=== PATIENT | female | born 1935 | race Caucasian/White ===

== ENCOUNTER 2020-02-02 20:38 | Emergency (ER) | payer MEDICARE, SELFPAY ==
--- NOTE | ~2020-02-02 | XR_ITS ---
XR tibia fibula RT 2V 02/02/2020 21:18 INDICATION: Right lower leg pain and edema PROCEDURE: 2 views right tibia/fibula COMPARISON: No prior studies for comparison. FINDINGS: Fracture, dislocation or subluxation is not identified. There is moderate diffuse subcutane ous edema. No foreign bodies are identified. IMPRESSION: 1: NO ACUTE BONE OR JOINT ABNORMALITY IDENTIFIED. Reviewed, dictated and finalized at location A.
--- NOTE | 2020-02-02 20:53 | ED.EXTPRO ---
HPI - Extremity Problem General Chief complaint: Extremity Problem,Nontraumatic Stated complaint: swelling in R leg Time Seen by Provider: 02/02/20 20:55 Source: patient and family Mode of arrival: wheelchair Limitations: no limitations History of Present Illness HPI Narrative: 84-year-old woman with a history of embolic CVA, and chronic renal insufficiency comes in today complaining of pain and swelling in her right leg that started 1 month ago. She states that she has a spot in the front of her leg that is weeping clear fluid. She denies fever, nausea, vomiting, weakness, chills, night sweats and numbness. She denies prior similar symptoms. MD Complaint: extremity pain and extremity swelling Related Data Home Medications Medication Instructions Recorded Confirmed acetaminophen [Tylenol Extra 1,000 mg PO Q4H PRN 05/09/19 02/02/20 Strength] anastrozole 1 mg PO DAILY 05/09/19 02/02/20 apixaban [Eliquis] 2.5 mg PO BID 05/09/19 02/02/20 carvedilol 12.5 mg PO BID 05/09/19 02/02/20 cyanocobalamin (vitamin B-12) 1,000 mcg PO DAILY 05/09/19 02/02/20 ferrous sulfate 325 mg PO TID 05/09/19 02/02/20 hydrochlorothiazide 12.5 mg PO DAILY 05/09/19 02/02/20 losartan 100 mg PO DAILY 05/09/19 02/02/20 magnesium 1,000 mg PO DAILY 05/09/19 02/02/20 pantoprazole 40 mg PO BID 05/09/19 02/02/20 atorvastatin 10 mg PO DAILY 02/02/20 02/02/20 oxybutynin chloride 5 mg PO DAILY 02/02/20 02/02/20 Allergies Allergy/AdvReac Type Severity Reaction Status Date / Time amoxicillin Allergy Unknown Verified 11/12/17 09:45 simvastatin Allergy Unknown Verified 09/11/15 13:05 Sulfa (Sulfonamide Allergy Unknown Verified 09/12/15 10:09 Antibiotics) Review of Systems Constitutional: Constitutional: Denies chills, Denies fever(s) and Denies weakness Eyes: Eyes: Denies change in vision and Denies photophobia Respiratory: Respiratory: Denies cough, Denies dyspnea and Denies wheezing Gastrointestinal: Gastrointestinal: Denies abdominal pain, Denies nausea and Denies vomiting Genitourinary: Genitourinary: Denies nocturia and Denies dysuria Musculoskeletal: Musculoskeletal: Reports as per HPI (leg swelling, wound), Denies arthralgias and Denies joint swelling Integumentary/Breasts: Skin/Breast: Denies pruritus, Denies erythema and Denies rash Neurologic: Denies vertigo, Denies dizziness and Denies syncope Hematologic/Lymphatic: Hematologic/Lymphatic: Reports easy bleeding and Denies easy bruising Allergic/Immunologic: Allergic/Immunologic: Denies lip swelling and Denies throat swelling PMFSH Past Medical History Medical History (Updated 02/02/20 @ 22:43 by Javi Mcarthur MD) Chronic renal insufficiency Colon cancer CVA (cerebral vascular accident) Dyslipidemia Endometrial cancer GERD (gastroesophageal reflux disease) Neuropathy Small bowel obstruction Surgical History Surgical History (Updated 05/09/19 @ 14:42 by Javi Mcarthur MD) H/O colectomy History of appendectomy History of hysterectomy for cancer History of laparotomy Hx of cataract surgery Family History Family History (Updated 11/18/17 @ 11:00 by DOCTOR UNKNOWN) Other Cerebrovascular accident Family history of malignant neoplasm Hypertension Social History Social History (Updated 05/09/19 @ 14:42 by Javi Mcarthur MD) Smoking status: Never smoker Alcohol intake: never Substance use: never Exam Const: General: healthy appearing, no acute distress and alert Orientation/consciousness: patient oriented x3 Limitations: no limitations Eyes: Conjunctivae: conjunctivae normal Pupils: Equal, round and reactive pupils present EOM: EOMs intact bilaterally Resp: Effort & Inspection: normal respiratory effort and not labored Auscultation: clear to auscultation bilaterally, no rales, no rhonchi and no wheezes Cardio: Rate: regular rate Rhythm: regular rhythm Heart sounds: no murmurs Skin: General skin exam: normal color, no jaundi
[2020-02-02 21:10] VITALS: BP 146/76; PULSE 107; RESP 20; TEMP 36.7; O2SAT 97
[2020-02-02 21:26] LABS: Basophils Absolute Auto 0.05 K/mm3 (0.00-0.10); Basophils Percent Auto 0.7 % (0.0-1.0); Eosinophils Absolute Auto 0.09 K/mm3 (0.02-0.50); Eosinophils Percent Auto 1.3 % (1.0-6.0); Hematocrit 32.6 % (35.0-42.0); Hemoglobin 10.2 g/dL (11.7-13.8); Immature Granulocyte Absolute 0.03 K/mm3 (0.00-0.00); Immature Granulocyte Percent A 0.4 % (0.0-0.0); Lymphocytes Absolute Auto 0.93 K/mm3 (1.10-4.50); Mean Corpuscular HGB Conc 31.3 g/dL (32.0-36.0); Mean Corpuscular Hemoglobin 28.5 pg (27.0-31.0); Mean Corpuscular Volume 91.1 fL (78.0-102.0); Mean Platelet Volume 10.3 fl (9.2-11.8); Monocytes Absolute Auto 0.86 K/mm3 (0.10-0.90); Neutrophils Absolute Auto 5.2 K/mm3 (1.7-7.2); Neutrophils Percent Auto 72.6 % (50.0-70.0); Platelet Count Result 327 K/mm3 (150-420); Red Blood Count 3.58 M/mm3 (4.20-5.40); Red Cell Distribution Width 14.9 % (11.6-14.4); White Blood Count 7.2 K/mm3 (4.8-10.8)
[2020-02-02 21:41] LABS: Alanine Aminotransferase 13 U/L (14-59); Albumin Level 3.2 g/dL (3.4-5.0); Alkaline Phosphatase 82 U/L (46-116); Anion Gap 7 mmol/L (8-16); Aspartate Amino Transferase 13 U/L (15-37); Bilirubin,Total 0.5 mg/dL (0.00-1.00); Blood Urea Nitrogen 15 mg/dL (7-18); CRP 0.7 mg/dL (0.0-0.9); Calcium 8.9 mg/dL (8.5-10.1); Carbon Dioxide 28 mmol/L (21-32); Chloride 108 mmol/L (98-108); Estimated Glomerular Filt Rate 30; Glucose 95 mg/dL (70-99); Osmolality Calculated 296 mOsm/kg (285-295); Potassium 3.3 mmol/L (3.5-5.1); Sodium 143 mmol/L (136-145); Total Protein 6.8 g/dL (6.4-8.2)
[2020-02-02 21:46] LABS: Lactic Acid Reflex 0.8 mmol/L (0.4-2.0)
[2020-02-02 21:50] LABS: INR 1.3; Partial Thromboplastin Time 32.1 SEC (22.3-31.6)
[2020-02-02 22:26] LABS: Add Urine Microscopic? YES; Appearance Urine Sl Cloudy (Clear); Bilirubin Urine Negative (Negative); Blood Urine 1+ (Negative); Color Urine Yellow (Yellow); Glucose Urine UA Negative (Negative); Ketones Urine Trace (Negative); Leukocyte Esterase Ur 2+ LEU/UL (Negative); Nitrate Urine Negative (Negative); Protein Urine Trace (Negative); Specific Grav Ur 1.025 (1.010-1.020); Urobilinogen Urine 0.2 mg/dL (0.2-1.0); pH Urine 5.5 (5.0-8.0)
[2020-02-02] MEDS: CIPROFLOXACIN 500 MG TAB PO (22:30)
[2020-02-02 22:35] LABS: Bacteria Urine 1+ /hpf; Squamous Epithelial Cell Urine None seen /hpf (Few); WBC Urine 21-30 /hpf (0-3)
[2020-02-02 23:00] VITALS: BP 110/80; PULSE 68; RESP 16; TEMP 36.6; O2SAT 98
== END 2020-02-02 23:01 | disposition home or self-care (01) ==
PROVIDERS: Emergency Provider Emergency Medicine; PCP Internal Medicine
DX: I87.8 Other specified disorders of veins (principal); E87.6 Hypokalemia; N39.0 Urinary tract infection, site not specified; N18.3 Chronic kidney disease, stage 3 (moderate)
CPT/HCPCS: 36415; 73590; 80053; 81001; 83605; 85025; 85610; 85730; 86140; 87040; 87086; 87088; 99283; A9270

== ENCOUNTER 2020-02-03 14:34 | Outpatient (CLI) | payer MEDICARE, SELFPAY ==
--- NOTE | ~2020-02-03 | US_ITS ---
EXAMINATION:US venous doppler LE RT INDICATION:Right leg swelling TECHNIQUE: Multiple grayscale, color flow and Doppler images of the right lower extremity deep venous systems were obtained and reviewed. COMPARISON:No prior studies for comparison. FINDINGS: The common femoral, superficial femoral and popliteal veins demonstrate normal respiratory variation, augmentation and compressibility. Color flow is also seen within the posterior tibial, pe roneal, greater saphenous and profunda veins. There is right inguinal lymphadenopathy, largest measuring 2.8 x 2.7 x 1.9 cm, likely reactive. IMPRESSION: 1: No lower extremity deep venous thrombosis. 2: Right inguinal lymphadenopathy, likely reactive. Reviewed, dictated and finalized at location A.
== END 2020-02-03 14:35 | disposition home or self-care (01) ==
PROVIDERS: PCP Internal Medicine; Visit Provider Internal Medicine
DX: M79.89 Other specified soft tissue disorders (principal); R59.0 Localized enlarged lymph nodes
CPT/HCPCS: 93971

== ENCOUNTER 2020-02-09 08:12 | Outpatient (CLI) | payer MEDICARE, SELFPAY ==
--- NOTE | ~2020-02-09 | CT_ITS ---
EXAMINATION: CT abdomen pelvis wo con DATE: 02/09/2020 08:51 INDICATION: Metastatic endometrial cancer TECHNIQUE: Computed tomography (CT) of the abdomen and pelvis was performed without intravenous contr ast. The dose-length product (DLP) was 252.92 mGy-cm. Automated exposure control and iterative recons truction technique were employed. COMPARISON: 05/09/2019 FINDINGS: Nodules of the visualized lung bases measure up to 10 mm in the left lower lobe. A 5 mm nod ule of the right lower lobe on image 15 previously measured 3 mm. A 4 mm nodule of the lingula previo usly measured 3 mm. The heart size is normal. There is no pleural or pericardial effusion. Within the limitations of noncontrast examination, the liver, spleen, pancreas, and adrenal glands are normal. Stones are present in the nondistended gallbladder. There is cortical thinning of the kidneys. There is calcified atherosclerosis of the aorta and many of the other arteries. Bilateral inguinal lymphade nopathy has developed. The largest lymph node on the right measures 2.5 x 1.8 cm and the largest on t he left measures 2.3 x 1.1 cm. There is questionable wall thickening of the vagina. A fat-containing infraumbilical hernia is noted. There is moderate lumbar spondylosis. Colonic diverticulosis is prese nt without evidence of diverticulitis. There is no free intraperitoneal gas or evidence of bowel obst ruction. A bowel surgical anastomosis is noted in the pelvis. An enchondroma is noted in the right pr oximal femur. IMPRESSION: 1. Interval development of bilateral inguinal lymphadenopathy, consistent with metastatic disease. 2. Large nodules of the visualized lung bases, also concerning for metastatic disease. 3. Wall thickening of the vagina of unclear significance. 4. Cholelithiasis without evidence of cholecystitis. Reviewed, dictated and finalized at location A. IMPRESSION: 1. Interval development of bilateral inguinal lymphadenopathy, consistent with metastatic disease. 2. Large nodules of the visualized lung bases, also concerning for metastatic d isease. 3. Wall thickening of the vagina of unclear significance. 4. Cholelithiasis without evidence of cholecystitis.
== END 2020-02-09 08:13 | disposition home or self-care (01) ==
LOC: CHSIMG 08:15
PROVIDERS: PCP Internal Medicine; Visit Provider Internal Medicine
DX: C54.1 Malignant neoplasm of endometrium (principal)
CPT/HCPCS: 74176

== ENCOUNTER 2020-02-17 20:48 | Emergency (ER) | payer MEDICARE, SELFPAY ==
[2020-02-17 21:00] VITALS: BP 155/82; PULSE 110; RESP 16; TEMP 36.6; O2SAT 98
--- NOTE | 2020-02-17 21:17 | ED.EXTPRO ---
HPI - Extremity Problem General Chief complaint: Extremity Problem,Nontraumatic Stated complaint: swelling in the right leg Source: patient and family Mode of arrival: ambulatory Limitations: no limitations History of Present Illness HPI Narrative: 84-year-old female presents with left shoulder pain, denies any injuries she is here with her daughter and her daughter does not report any injuries. Has good range of motion there is no swelling, there is no point tenderness has a good strong brisk radial pulse on the on the left there is no bruising has no shortness of breath no fever chills no radiculopathy no numbness or tingling going down her left neck or shoulder into her arm. Complaint: extremity pain Onset (ago): day(s) Pain Consistency: intermittent Location: left Severity scale (1-10): 1 Quality: dull Radiation: none Relieving factors: nothing Exacerbating factors: nothing Associated symptoms: denies other symptoms Related Data Home Medications Medication Instructions Recorded Confirmed acetaminophen [Tylenol Extra 1,000 mg PO Q4H PRN 05/09/19 02/17/20 Strength] anastrozole 1 mg PO DAILY 05/09/19 02/17/20 apixaban [Eliquis] 2.5 mg PO BID 05/09/19 02/17/20 carvedilol 12.5 mg PO BID 05/09/19 02/17/20 cyanocobalamin (vitamin B-12) 1,000 mcg PO DAILY 05/09/19 02/17/20 ferrous sulfate 325 mg PO TID 05/09/19 02/17/20 hydrochlorothiazide 12.5 mg PO DAILY 05/09/19 02/17/20 losartan 100 mg PO DAILY 05/09/19 02/17/20 magnesium 1,000 mg PO DAILY 05/09/19 02/17/20 pantoprazole 40 mg PO BID 05/09/19 02/17/20 atorvastatin 10 mg PO DAILY 02/02/20 02/17/20 oxybutynin chloride 5 mg PO DAILY 02/02/20 02/17/20 Allergies Allergy/AdvReac Type Severity Reaction Status Date / Time amoxicillin Allergy Unknown Verified 11/12/17 09:45 simvastatin Allergy Unknown Verified 09/11/15 13:05 Sulfa (Sulfonamide Allergy Unknown Verified 09/12/15 10:09 Antibiotics) Review of Systems Review of Systems: All systems reviewed & are unremarkable except as noted in HPI and below PMFSH Past Medical History Medical History Chronic renal insufficiency Colon cancer CVA (cerebral vascular accident) Dyslipidemia Endometrial cancer GERD (gastroesophageal reflux disease) Neuropathy Small bowel obstruction Surgical History Surgical History H/O colectomy History of appendectomy History of hysterectomy for cancer History of laparotomy Hx of cataract surgery Family History Family History Other Cerebrovascular accident Family history of malignant neoplasm Hypertension Social History Social History Smoking status: Never smoker Alcohol intake: never Substance use: never Exam Const: General: no acute distress and alert Orientation/consciousness: patient oriented x3 HENMT: Head: normal to inspection Eyes: Conjunctivae: conjunctivae normal Pupils: Equal, round and reactive pupils present EOM: EOMs intact bilaterally Neck: Neck: normal visual inspection Chest: Chest palpation & inspection: normal inspection of the chest Resp: Effort & Inspection: normal respiratory effort Auscultation: clear to auscultation bilaterally Cardio: Rate: regular rate Rhythm: regular rhythm GI: GI Palp: Yes Soft to palpation : General: Yes no CVA tenderness Back/Spine/Pelvis: Back: no CVA tenderness Skin: General skin exam: normal color Rashes: no rashes Neuro: General: patient oriented x3 and moves all extremities Extrem: General: normal to inspection Psych: Appearance: grossly normal and well kempt Mental Status: mental status grossly normal Affect: normal affect Attitude: cooperative Course Course Emergency Course: Patient did take Tylenol earlier this morning but has not had any sense, n
[2020-02-17 21:29] VITALS: RESP 20; O2SAT 100
== END 2020-02-17 21:29 | disposition home or self-care (01) ==
PROVIDERS: Emergency Provider Emergency Medicine; PCP Internal Medicine
DX: S46.912A Strain of unspecified muscle, fascia and tendon at shoulder and upper arm level, left arm, initial encounter (principal); Z85.038 Personal history of other malignant neoplasm of large intestine; Z86.73 Personal history of transient ischemic attack (TIA), and cerebral infarction without residual deficits; K21.9 Gastro-esophageal reflux disease without esophagitis
CPT/HCPCS: 99281; 99282

== ENCOUNTER 2020-04-25 10:16 | Outpatient (CLI) | payer MEDICARE, SELFPAY | END 2020-04-25 10:17 | disposition home or self-care (01) | LOC: CHSLAB 10:18 | PROVIDERS: PCP Internal Medicine; Visit Provider Internal Medicine | DX: R19.7 Diarrhea, unspecified (principal) | CPT/HCPCS: 87324 ==

== ENCOUNTER 2020-05-03 10:56 | Outpatient (RCR) | payer MEDICARE, SELFPAY ==
[2020-03-22 16:20] LABS: Basophils Absolute Auto 0.02 K/mm3 (0.00-0.10); Basophils Percent Auto 0.3 % (0.0-1.0); Eosinophils Absolute Auto 0.05 K/mm3 (0.02-0.50); Eosinophils Percent Auto 0.7 % (1.0-6.0); Hematocrit 37.5 % (35.0-42.0); Hemoglobin 11.7 g/dL (11.7-13.8); Immature Granulocyte Absolute 0.03 K/mm3 (0.00-0.00); Immature Granulocyte Percent A 0.4 % (0.0-0.0); Lymphocytes Absolute Auto 0.76 K/mm3 (1.10-4.50); Lymphocytes Percent Auto 10.6 % (18.0-42.0); Mean Corpuscular HGB Conc 31.2 g/dL (32.0-36.0); Mean Corpuscular Hemoglobin 28.6 pg (27.0-31.0); Mean Corpuscular Volume 91.7 fL (78.0-102.0); Mean Platelet Volume 11.1 fl (9.2-11.8); Monocytes Absolute Auto 0.14 K/mm3 (0.10-0.90); Neutrophils Absolute Auto 6.2 K/mm3 (1.7-7.2); Platelet Count Result 269 K/mm3 (150-420); Red Blood Count 4.09 M/mm3 (4.20-5.40); Red Cell Distribution Width 14.5 % (11.6-14.4); White Blood Count 7.2 K/mm3 (4.8-10.8)
[2020-03-29 20:26] LABS: Hematocrit 37.2 % (35.0-42.0); Hemoglobin 11.3 g/dL (11.7-13.8); Mean Corpuscular HGB Conc 30.4 g/dL (32.0-36.0); Mean Corpuscular Hemoglobin 28.5 pg (27.0-31.0); Mean Corpuscular Volume 93.7 fL (78.0-102.0); Mean Platelet Volume 11.4 fl (9.2-11.8); Platelet Count Result 229 K/mm3 (150-420); Red Blood Count 3.97 M/mm3 (4.20-5.40); Red Cell Distribution Width 14.1 % (11.6-14.4); White Blood Count 2.3 K/mm3 (4.8-10.8)
[2020-03-29 20:41] LABS: Alanine Aminotransferase 16 U/L (14-59); Albumin Level 3.3 g/dL (3.4-5.0); Alkaline Phosphatase 78 U/L (46-116); Anion Gap 7 mmol/L (8-16); Aspartate Amino Transferase 11 U/L (15-37); Blood Urea Nitrogen 16 mg/dL (7-18); Calcium 8.7 mg/dL (8.5-10.1); Carbon Dioxide 28 mmol/L (21-32); Chloride 104 mmol/L (98-108); Estimated Glomerular Filt Rate 43; Glucose 117 mg/dL (70-99); Magnesium 1.3 mg/dL (1.8-2.4); Osmolality Calculated 290 mOsm/kg (285-295); Potassium 3.9 mmol/L (3.5-5.1); Sodium 139 mmol/L (136-145); Total Protein 6.1 g/dL (6.4-8.2)
[2020-03-29 21:16] LABS: Band Neutrophils Percent 0 % (0-6); Lymphocytes Absolute Manual 0.34 K/mm3 (1.1-4.5); Lymphocytes Percent Manual 15 % (18-44); Monocytes Absolute Manual 0.04 K/mm3 (0.1-0.90); Monocytes Percent Manual 2 % (3-9); Neutrophils Percent Manual 83 % (46-73); Total Cells Counted 100
[2020-03-29 21:17] LABS: Platelet Estimate Adequate (Adequate)
[2020-04-05 09:29] LABS: Hematocrit 34.9 % (35.0-42.0); Hemoglobin 11.2 g/dL (11.7-13.8); Mean Corpuscular HGB Conc 32.1 g/dL (32.0-36.0); Mean Corpuscular Hemoglobin 28.4 pg (27.0-31.0); Mean Corpuscular Volume 88.6 fL (78.0-102.0); Mean Platelet Volume 10.3 fl (9.2-11.8); Platelet Count Result 269 K/mm3 (150-420); Red Blood Count 3.94 M/mm3 (4.20-5.40); Red Cell Distribution Width 13.8 % (11.6-14.4)
[2020-04-05 10:02] LABS: Alanine Aminotransferase 16 U/L (14-59); Albumin Level 3.1 g/dL (3.4-5.0); Alkaline Phosphatase 80 U/L (46-116); Anion Gap 9 mmol/L (8-16); Aspartate Amino Transferase 11 U/L (15-37); Bilirubin,Total 1.4 mg/dL (0.00-1.00); Blood Urea Nitrogen 18 mg/dL (7-18); Calcium 8.4 mg/dL (8.5-10.1); Carbon Dioxide 31 mmol/L (21-32); Chloride 102 mmol/L (98-108); Estimated Glomerular Filt Rate 54; Glucose 95 mg/dL (70-99); Osmolality Calculated 295 mOsm/kg (285-295); Potassium 3.7 mmol/L (3.5-5.1); Sodium 142 mmol/L (136-145)
[2020-04-05 10:16] LABS: Band Neutrophils Percent 1 % (0-6); Basophils Absolute Manual 0.02 K/mm3 (0-0.1); Basophils Percent Manual 2 % (0-1); Eosinophils Absolute Manual 0.01 K/mm3 (0.02-0.5); Eosinophils Percent Manual 1 % (1-6); Lymphocytes Absolute Manual 0.23 K/mm3 (1.1-4.5); Lymphocytes Percent Manual 23 % (18-44); Metamyelocytes Percent 0 %; Monocytes Absolute Manual 0.07 K/mm3 (0.1-0.90); Monocytes Percent Manual 7 % (3-9); Myelocytes Percent 3 %; Neutrophils Absolute Manual 0.64 K/mm3 (1.7-7.2); Neutrophils Percent Manual 63 % (46-73); Platelet Estimate Adequate (Adequate); Total Cells Counted 100
[2020-04-12 18:28] LABS: Hematocrit 32.8 % (35.0-42.0); Hemoglobin 10.4 g/dL (11.7-13.8); Mean Corpuscular HGB Conc 31.7 g/dL (32.0-36.0); Mean Corpuscular Hemoglobin 28.2 pg (27.0-31.0); Mean Corpuscular Volume 88.9 fL (78.0-102.0); Mean Platelet Volume 9.6 fl (9.2-11.8); Platelet Count Result 320 K/mm3 (150-420); Red Blood Count 3.69 M/mm3 (4.20-5.40); Red Cell Distribution Width 14.2 % (11.6-14.4); White Blood Count 3.2 K/mm3 (4.8-10.8)
[2020-04-12 18:58] LABS: Band Neutrophils Percent 0 % (0-6); Basophils Absolute Manual 0.03 K/mm3 (0-0.1); Basophils Percent Manual 1 % (0-1); Eosinophils Absolute Manual 0.03 K/mm3 (0.02-0.5); Eosinophils Percent Manual 1 % (1-6); Lymphocytes Percent Manual 25 % (18-44); Monocytes Percent Manual 47 % (3-9); Myelocytes Percent 1 %; Neutrophils Percent Manual 25 % (46-73); Platelet Estimate Adequate (Adequate)
[2020-04-19 12:48] LABS: Basophils Absolute Auto 0.05 K/mm3 (0.00-0.10); Basophils Percent Auto 0.5 % (0.0-1.0); Eosinophils Absolute Auto 0.01 K/mm3 (0.02-0.50); Eosinophils Percent Auto 0.1 % (1.0-6.0); Hematocrit 35.3 % (35.0-42.0); Hemoglobin 11.2 g/dL (11.7-13.8); Immature Granulocyte Absolute 0.08 K/mm3 (0.00-0.00); Immature Granulocyte Percent A 0.8 % (0.0-0.0); Lymphocytes Absolute Auto 1.19 K/mm3 (1.10-4.50); Lymphocytes Percent Auto 12.3 % (18.0-42.0); Mean Corpuscular HGB Conc 31.7 g/dL (32.0-36.0); Mean Corpuscular Hemoglobin 28.2 pg (27.0-31.0); Mean Corpuscular Volume 88.9 fL (78.0-102.0); Mean Platelet Volume 9.2 fl (9.2-11.8); Monocytes Absolute Auto 1.15 K/mm3 (0.10-0.90); Monocytes Percent Auto 11.9 % (2.0-11.0); Neutrophils Absolute Auto 7.2 K/mm3 (1.7-7.2); Neutrophils Percent Auto 74.4 % (50.0-70.0); Platelet Count Result 242 K/mm3 (150-420); Red Blood Count 3.97 M/mm3 (4.20-5.40); Red Cell Distribution Width 14.6 % (11.6-14.4); White Blood Count 9.7 K/mm3 (4.8-10.8)
[2020-04-19 14:45] LABS: Alanine Aminotransferase 15 U/L (14-59); Albumin Level 3.3 g/dL (3.4-5.0); Alkaline Phosphatase 105 U/L (46-116); Anion Gap 12 mmol/L (8-16); Aspartate Amino Transferase 14 U/L (15-37); Bilirubin,Total 0.6 mg/dL (0.00-1.00); Blood Urea Nitrogen 20 mg/dL (7-18); Calcium 8.9 mg/dL (8.5-10.1); Carbon Dioxide 28 mmol/L (21-32); Chloride 105 mmol/L (98-108); Estimated Glomerular Filt Rate 39; Glucose 79 mg/dL (70-99); Magnesium 1.2 mg/dL (1.8-2.4); Osmolality Calculated 301 mOsm/kg (285-295); Potassium 3.7 mmol/L (3.5-5.1); Sodium 145 mmol/L (136-145); Total Protein 6.4 g/dL (6.4-8.2)
[2020-04-26 12:33] LABS: Basophils Absolute Auto 0.03 K/mm3 (0.00-0.10); Basophils Percent Auto 0.4 % (0.0-1.0); Eosinophils Absolute Auto 0.07 K/mm3 (0.02-0.50); Eosinophils Percent Auto 0.9 % (1.0-6.0); Hematocrit 36.7 % (35.0-42.0); Hemoglobin 11.6 g/dL (11.7-13.8); Immature Granulocyte Absolute 0.02 K/mm3 (0.00-0.00); Immature Granulocyte Percent A 0.3 % (0.0-0.0); Lymphocytes Absolute Auto 1.25 K/mm3 (1.10-4.50); Lymphocytes Percent Auto 15.8 % (18.0-42.0); Mean Corpuscular HGB Conc 31.6 g/dL (32.0-36.0); Mean Corpuscular Hemoglobin 28.3 pg (27.0-31.0); Mean Corpuscular Volume 89.5 fL (78.0-102.0); Mean Platelet Volume 9.6 fl (9.2-11.8); Monocytes Percent Auto 8.9 % (2.0-11.0); Neutrophils Absolute Auto 5.8 K/mm3 (1.7-7.2); Neutrophils Percent Auto 73.7 % (50.0-70.0); Platelet Count Result 266 K/mm3 (150-420); Red Cell Distribution Width 15.9 % (11.6-14.4); White Blood Count 7.9 K/mm3 (4.8-10.8)
[2020-04-26 13:34] LABS: Alanine Aminotransferase 12 U/L (14-59); Albumin Level 3.3 g/dL (3.4-5.0); Alkaline Phosphatase 97 U/L (46-116); Anion Gap 11 mmol/L (8-16); Aspartate Amino Transferase 12 U/L (15-37); Bilirubin,Total 0.8 mg/dL (0.00-1.00); Blood Urea Nitrogen 16 mg/dL (7-18); Calcium 9.1 mg/dL (8.5-10.1); Carbon Dioxide 28 mmol/L (21-32); Chloride 106 mmol/L (98-108); Estimated Glomerular Filt Rate 42; Glucose 101 mg/dL (70-99); Osmolality Calculated 301 mOsm/kg (285-295); Potassium 3.4 mmol/L (3.5-5.1); Sodium 145 mmol/L (136-145); Total Protein 6.3 g/dL (6.4-8.2)
[2020-05-03 11:07] LABS: Basophils Absolute Auto 0.02 K/mm3 (0.00-0.10); Basophils Percent Auto 0.3 % (0.0-1.0); Eosinophils Absolute Auto 0.08 K/mm3 (0.02-0.50); Eosinophils Percent Auto 1.4 % (1.0-6.0); Hematocrit 37.5 % (35.0-42.0); Hemoglobin 11.9 g/dL (11.7-13.8); Immature Granulocyte Absolute 0.02 K/mm3 (0.00-0.00); Immature Granulocyte Percent A 0.3 % (0.0-0.0); Lymphocytes Absolute Auto 1.38 K/mm3 (1.10-4.50); Lymphocytes Percent Auto 23.8 % (18.0-42.0); Mean Corpuscular HGB Conc 31.7 g/dL (32.0-36.0); Mean Corpuscular Hemoglobin 28.5 pg (27.0-31.0); Mean Corpuscular Volume 89.7 fL (78.0-102.0); Mean Platelet Volume 9.5 fl (9.2-11.8); Monocytes Absolute Auto 0.52 K/mm3 (0.10-0.90); Neutrophils Absolute Auto 3.8 K/mm3 (1.7-7.2); Neutrophils Percent Auto 65.2 % (50.0-70.0); Platelet Count Result 298 K/mm3 (150-420); Red Blood Count 4.18 M/mm3 (4.20-5.40); Red Cell Distribution Width 16.5 % (11.6-14.4); White Blood Count 5.8 K/mm3 (4.8-10.8)
[2020-05-03 12:06] LABS: Alanine Aminotransferase 15 U/L (14-59); Albumin Level 3.5 g/dL (3.4-5.0); Alkaline Phosphatase 103 U/L (46-116); Anion Gap 10 mmol/L (8-16); Aspartate Amino Transferase 19 U/L (15-37); Bilirubin,Total 0.6 mg/dL (0.00-1.00); Blood Urea Nitrogen 20 mg/dL (7-18); Calcium 9.1 mg/dL (8.5-10.1); Carbon Dioxide 30 mmol/L (21-32); Chloride 104 mmol/L (98-108); Estimated Glomerular Filt Rate 41; Glucose 88 mg/dL (70-99); Osmolality Calculated 299 mOsm/kg (285-295); Potassium 3.4 mmol/L (3.5-5.1); Sodium 144 mmol/L (136-145); Total Protein 6.8 g/dL (6.4-8.2)
[2020-05-03 12:28] LABS: Magnesium 1.1 mg/dL (1.8-2.4)
== END 2020-06-20 23:59 | disposition home or self-care (01) ==
LOC: CHSLAB 10:56
PROVIDERS: PCP Internal Medicine
DX: C54.1 Malignant neoplasm of endometrium (principal)
CPT/HCPCS: 36415; 80053; 83735; 85025; 87324

== ENCOUNTER 2020-09-09 20:50 | Emergency (ER) | payer MEDICARE, SELFPAY ==
--- NOTE | ~2020-09-09 | CT_ITS ---
EXAMINATION: CT chest abdomen pelvis w con DATE: 09/09/2020 22:19 INDICATION: Right chest and pelvic pain after fall, history of metastatic endometrial cancer TECHNIQUE: Transaxial computed tomographic images of the chest, abdomen, and pelvis were obtained aft er the administration of 100 cc of Omnipaque 350 intravenous contrast. The dose-length product (DLP) was 318.08 mGy-cm. Automated exposure control and iterative reconstruction technique were employed. COMPARISON: 02/09/2020 FINDINGS: CHEST CT: There is an 11 mm nodule of the left lower lobe which previously measured 10 mm. A stable 5 mm nodule is present in the right lower lobe. A 7 mm nodule of the lingula previously measured 4 mm. A stable 5 mm nodule is present in the right lower lobe on image 83. There is a 2 cm nodule in the right upper lobe on image 32. Cardiomegaly is noted. There are small pleural effusions, left greater than right. No pneumothorax is identified. There are no pathologically enlarged thoracic lymph nodes. Healed lef t-sided rib fractures are noted. A right internal jugular Port-A-Cath ends with its tip in the distal superior vena cava. A healed fracture of the proximal left humerus is noted. There is moderate thora cic spondylosis. ABDOMEN/PELVIS CT: The liver, spleen, pancreas, and adrenal glands are normal. Stones are present in the nondistended ga llbladder. There is cortical thinning of the kidneys. There is calcified atherosclerosis of the aorta and many of the other arteries. Right inguinal lymphadenopathy persists with interval improvement. T here is resolution of the previously described left inguinal lymphadenopathy. There is no free intrap eritoneal gas or evidence of bowel obstruction. There is moderate lumbar spondylosis. An enchondroma is noted in the right proximal femur. IMPRESSION: 1. Improved bilateral inguinal lymphadenopathy, consistent with treatment response. 2. Multiple pulmonary nodules, stable to slightly enlarged, consistent with metastatic disease. Reviewed, dictated and finalized at location A. IMPRESSION: 1. Improved bilateral inguinal lymphadenopathy, consistent with treatment respo nse. 2. Multiple pulmonary nodules, stable to slightly enlarged, consistent with met astatic disease.
[2020-09-09 21:00] VITALS: BP 159/85; PULSE 106; RESP 20; TEMP 36.5; O2SAT 96
--- NOTE | 2020-09-09 21:02 | ED.LOWEXIN ---
HPI - Extremity Injury (Lower) General Chief Complaint: Fall Stated Complaint: amb Time Seen by Provider: 09/09/20 21:03 Source: patient Mode of arrival: EMS Limitations: no limitations History of Present Illness HPI Narrative: Patient comes in due to fall. She fell this am and says she has had moderately severe, sharp pain ongoing which she describes as being in her left sacroiliac area, and in the right lateral rib area. Pain has been ongoing since a fall that happened today about noon. Nothing has made this pain better or worse. Type of Injury: blunt Place: home Severity: mild Severity scale (1-10): 7 Relieving factors: nothing Exacerbating factors: nothing Context: fall Other symptoms: none Related Data Home Medications Medication Instructions Recorded Confirmed apixaban [Eliquis] 2.5 mg PO BID 05/09/19 09/09/20 ferrous sulfate 325 mg PO TID 05/09/19 09/09/20 fentanyl 1 patch TRANSDERMAL Q72H 09/09/20 09/09/20 hydrocodone-acetaminophen 2 tablet PO Q4-6H PRN 09/09/20 09/09/20 lorazepam 1 mg PO PRN PRN 09/09/20 09/09/20 Allergies Allergy/AdvReac Type Severity Reaction Status Date / Time amoxicillin Allergy Unknown Verified 11/12/17 09:45 simvastatin Allergy Unknown Verified 09/11/15 13:05 Sulfa (Sulfonamide Allergy Unknown Verified 09/12/15 10:09 Antibiotics) Review of Systems Constitutional: Constitutional: Reports no additional constitutional complaints Eyes: Eyes: Reports no additional eye complaints ENT: Reports system reviewed and no additional complaints, except as documented Cardiovascular: Cardiovascular: Reports no additional cardiovascular complaints Respiratory: Respiratory: Reports no additional respiratory complaints Gastrointestinal: Gastrointestinal: Reports no additional gastrointestinal complaints Genitourinary: Genitourinary: Reports no additional female genitourinary complaints Musculoskeletal: Musculoskeletal: Reports no additional musculoskeletal complaints Integumentary/Breasts: Skin/Breast: Reports system reviewed and no additional complaints, except as docu Neurologic: Reports system reviewed and no additional complaints, except as documented Psychiatric: Psychiatric: Reports no additional psychiatric complaints Endocrine: Endocrine: Reports no additional endocrine complaints Hematologic/Lymphatic: Hematologic/Lymphatic: Reports no additional hematologic/lymphatic complaints Allergic/Immunologic: Allergic/Immunologic: Reports no additional allergic/immunologic complaints [facility] Past Medical History Medical History (Updated 09/09/20 @ 23:12 by Ezekiel Yanez MD) Chronic renal insufficiency Colon cancer CVA (cerebral vascular accident) Dyslipidemia Endometrial cancer GERD (gastroesophageal reflux disease) Neuropathy Small bowel obstruction Surgical History Surgical History H/O colectomy History of appendectomy History of hysterectomy for cancer History of laparotomy Hx of cataract surgery Family History Family History Other Cerebrovascular accident Family history of malignant neoplasm Hypertension Social History Social History Smoking status: Never smoker Alcohol intake: never Substance use: never Exam Const: General: no acute distress Orientation/consciousness: patient oriented x3 HENMT: Head: normal to inspection Ears: external ears normal General nose exam: Normal external nose present Face and sinus: normal facial exam Eyes: General: appearance normal, both eyes and all related structures Conjunctivae: conjunctivae normal Neck: Neck: normal visual inspection Chest: Chest palpation & inspection: normal inspection of the chest Resp: Effort & Inspection: normal respiratory effort Auscultation: clear to auscultation bilaterally Cardio: Rate: regular rate Rhythm: regular
[2020-09-09 21:36] LABS: Alanine Aminotransferase 14 U/L (14-59); Albumin Level 3.3 g/dL (3.4-5.0); Alkaline Phosphatase 96 U/L (46-116); Anion Gap 8 mmol/L (8-16); Aspartate Amino Transferase 11 U/L (15-37); Bilirubin,Total 0.9 mg/dL (0.00-1.00); Blood Urea Nitrogen 17 mg/dL (7-18); Calcium 8.7 mg/dL (8.5-10.1); Carbon Dioxide 30 mmol/L (21-32); Chloride 103 mmol/L (98-108); Estimated CRCL calculation 26 ml/min; Estimated Glomerular Filt Rate 48; Glucose 98 mg/dL (70-99); Osmolality Calculated 293 mOsm/kg (285-295); Potassium 3.3 mmol/L (3.5-5.1); Sodium 141 mmol/L (136-145); Total Protein 7.5 g/dL (6.4-8.2)
[2020-09-09 22:20] LABS: Erythrocyte Sedimentation Rate 10 mm/hr (0-20)
[2020-09-09 23:15] VITALS: BP 140/78; PULSE 100; RESP 18; TEMP 36.1; O2SAT 98
== END 2020-09-09 23:26 | disposition home or self-care (01) ==
PROVIDERS: Emergency Provider Emergency Medicine; PCP Internal Medicine
DX: M54.5 Low back pain (principal); W19.XXXA Unspecified fall, initial encounter; E78.5 Hyperlipidemia, unspecified; Z86.73 Personal history of transient ischemic attack (TIA), and cerebral infarction without residual deficits; K21.9 Gastro-esophageal reflux disease without esophagitis
CPT/HCPCS: 36415; 71260; 74177; 80053; 85652; 99282; 99284; Q9967

== ENCOUNTER 2020-11-07 19:15 | Emergency (ER) | payer MEDICARE, SELFPAY ==
--- NOTE | ~2020-11-07 | XR_ITS ---
XR shoulder RT min 2V DATE: 11/07/2020 20:05 INDICATION: Right shoulder and arm pain following a fall TECHNIQUE: 3 views COMPARISON: 10/25/2018 right shoulder FINDINGS: There is a recent mildly laterally displaced fracture of the greater tuberosity of the prox imal right humerus Diffuse osteopenia. Degenerative spurring of the right acromion clavicular joint. Right Port-A-Cath catheter in superior vena cava. IMPRESSION: Mildly laterally displaced right greater tuberosity fracture Diffuse osteopenia is Reviewed, dictated and finalized at location A.
--- NOTE | ~2020-11-07 | XR_ITS ---
XR humerus RT DATE: 11/07/2020 20:05 INDICATION: Right shoulder and arm pain following a fall TECHNIQUE: AP and lateral views COMPARISON: None FINDINGS: Diffuse osteopenia. Mildly laterally displaced proximal right humeral greater tuberosity fracture. IMPRESSION: Recent fracture of the the greater tuberosity of the proximal right humerus Reviewed, dictated and finalized at location A.
--- NOTE | ~2020-11-07 | CT_ITS ---
EXAMINATION: CT facial bones wo con DATE: 11/07/2020 19:52 INDICATION: Fall. Laceration to nose TECHNIQUE: Computed tomography (CT) of the facial bones and maxillofacial region was performed withou t intravenous contrast. Automated exposure control and iterative reconstruction technique were employ ed. Exam dose: 264.07 mGy-cm total exam DLP. COMPARISON: None. FINDINGS: Bilateral hyperostosis frontalis interna, not likely of clinical significance. Left frontal extra cranial soft tissue thickening likely due to hematoma. Mildly displaced anterior right nasal plate fracture. No facial fracture is evident otherwise. The frontozygomatic sutures, orbital rims and baker, maxilla ry bones and mandible are intact. Normal alignment at the acromioclavicular joint. IMPRESSION: Right mildly displaced nasal plate fracture Reviewed, dictated and finalized at Location A. Reviewed, dictated and finalized at location A.
--- NOTE | ~2020-11-07 | CT_ITS ---
EXAMINATION: CT brain wo con DATE: 11/07/2020 19:51 INDICATION: Fall. Head injury. Nasal laceration. TECHNIQUE: Computed tomography (CT) of the head was performed without intravenous contrast. The mA wa s adjusted according to patient size. Iterative reconstruction technique was employed. Exam dose: 60 5.33 mGy-cm total exam DLP. COMPARISON: 03/14/2019 CT head FINDINGS: Carotid siphon internal carotid artery calcifications. There is nonspecific diminished atte nuation cerebral white matter, likely due to chronic small vessel ischemic changes. Bilateral basal g anglia chronic lacunar infarcts. No intracranial mass lesion or hemorrhage. No midline shift or mass effect effect. There is moderate cerebral and cerebellar atrophy. No subdural or epidural hematoma. Fracture right nasal bones, new findings since 03/26/2019. No fracture or bone destruction of the cranial vault. Bilateral hyperostosis frontalis interna. The mastoid air cells are normally developed and aerated. Mild focal opacification at the right ethmoid air cells. Included paranasal sinuses are otherwise unr emarkable. IMPRESSION: Right nasal bone fracture Cerebral atherosclerosis and chronic small vessel ischemic changes of cerebral white matter Bilateral chronic basal ganglia lacunar infarcts Central and cortical cerebral atrophy, cerebellar moderate atrophy Reviewed, dictated and finalized at [facility]. Reviewed, dictated and finalized at [facility].
[2020-11-07 19:20] VITALS: BP 144/77; PULSE 118; RESP 18; O2SAT 94
--- NOTE | 2020-11-07 21:11 | PC.NURSE ---
call to [facility] for ortho consult. left message for housekeeper child care.
[2020-11-07] MEDS: KETOROLAC 30 MG/ML VIAL (*BKC) IM (21:36)
--- NOTE | 2020-11-07 21:39 | PC.NURSE ---
dr olvera spoke with commercial housekeeper at [place]. awaiting call back from dr molina, ortho specialist.
--- NOTE | 2020-11-07 21:42 | PC.NURSE ---
pt to follow up with dr molina office. to call for appt.
[2020-11-07 21:43] VITALS: BP 157/89; PULSE 97; RESP 18; TEMP 36.9; O2SAT 94
--- NOTE | 2020-11-07 21:48 | PCDIET ---
family concerned with how to care for patient at home. call placed to group home for emergency admission. awaiting call to speak with charge nurse regarding bed availability.
[2020-11-07 22:11] LABS: SARS-CoV-2 Ag Negative (Negative)
--- NOTE | 2020-11-07 22:15 | PC.NURSE ---
pt daughter chris and granddaughter has decided to take patient, who is on hospice care, home for comfort through the night and will call dr molina office in the morning. [facility] called for transport to home.
--- NOTE | 2020-11-07 22:17 | ED.FALL ---
HPI - Fall General Chief Complaint: Fall Stated Complaint: AMB Source: patient, family and EMS Mode of arrival: EMS Limitations: physical limitation and clinical condition History of Present Illness HPI Narrative: this is a 85-year-old female that presents via EMS from after she sustained a fall earlier this evening causing pain in the right shoulder and with a nasal bleeding initially currently there is no bleeding during my assessment the patient is alert oriented no acute distress complaining of right shoulder pain decreased range of motion. The patient has a history of colon cancer with metastasis, currently on hospice. complaint: fall Onset (ago): hour(s) Fall from: standing Fall witnessed: no Place fall occurred: home Loss of consciousness: none Prolonged down time: no Symptoms prior to fall: none Context: tripped/slipped Location of injury: head and face Location of injury - extremities: Right: shoulder ( Pain) Related Data Home Medications Medication Instructions Recorded Confirmed apixaban [Eliquis] 2.5 mg PO BID 05/09/19 11/07/20 ferrous sulfate 325 mg PO TID 05/09/19 11/07/20 fentanyl 1 patch TRANSDERMAL Q72H 09/09/20 11/07/20 hydrocodone-acetaminophen 2 tablet PO Q4-6H PRN 09/09/20 11/07/20 lorazepam 1 mg PO PRN PRN 09/09/20 11/07/20 Allergies Allergy/AdvReac Type Severity Reaction Status Date / Time amoxicillin Allergy Unknown Verified 11/12/17 09:45 simvastatin Allergy Unknown Verified 09/11/15 13:05 Sulfa (Sulfonamide Allergy Unknown Verified 09/12/15 10:09 Antibiotics) Review of Systems Review of Systems: All systems reviewed & are unremarkable except as noted in HPI and below PMFSH Past Medical History Medical History (Updated 11/07/20 @ 22:23 by Sawyer Epstein MD) Chronic renal insufficiency Colon cancer CVA (cerebral vascular accident) Dyslipidemia Endometrial cancer GERD (gastroesophageal reflux disease) Neuropathy Small bowel obstruction Surgical History Surgical History H/O colectomy History of appendectomy History of hysterectomy for cancer History of laparotomy Hx of cataract surgery Family History Family History Other Cerebrovascular accident Family history of malignant neoplasm Hypertension Social History Social History Smoking status: Never smoker Alcohol intake: never Substance use: never Exam Const: General: no acute distress and alert Orientation/consciousness: patient oriented x3 HENMT: Other: Abrasions to the bridge of her nose and has some crusting nostrils from bleeding currently no bleeding Eyes: Conjunctivae: conjunctivae normal Pupils: Equal, round and reactive pupils present EOM: EOMs intact bilaterally Neck: Neck: normal visual inspection, no lymphadenopathy and no meningeal signs Chest: Chest palpation & inspection: normal inspection of the chest Resp: Effort & Inspection: normal respiratory effort Cardio: Rate: regular rate Rhythm: regular rhythm GI: GI Palp: Yes Soft to palpation Percussion: Yes normal to percussion : General: Yes no CVA tenderness Back/Spine/Pelvis: Back: no CVA tenderness Skin: Other: abrasions bridge of her nose Neuro: General: patient oriented x3, moves all extremities, no meningeal signs and no focal motor deficits Extrem: Other: decreased range of motion right shoulder secondary to pain and swelling Psych: Appearance: grossly normal Mental Status: mental status grossly normal Affect: normal affect Attitude: cooperative Course Course Emergency Course: reviewed x-ray findings with family and showing a fracture of the right shoulder and nasal bone fracture, discussed the findings with some orthopedics from [facility] and advised to follow-up with ortho clinic. Vital Signs Vital signs: Vital Signs Pulse Rate
--- NOTE | 2020-11-07 22:51 | PC.NURSE ---
[facility] HERE, REPORT TO STAFF ALEJANDRA LOPEZ LOADED AND DEPARTED TO GO TO HOME RESIDENCE
[2020-11-07 22:52] VITALS: BP 159/91; PULSE 118; RESP 20; TEMP 36.9; O2SAT 94
== END 2020-11-07 22:52 | disposition home or self-care (01) ==
PROVIDERS: Emergency Provider Emergency Medicine; PCP Internal Medicine
DX: S42.91XA Fracture of right shoulder girdle, part unspecified, initial encounter for closed fracture (principal); S02.2XXA Fracture of nasal bones, initial encounter for closed fracture; W19.XXXA Unspecified fall, initial encounter; E78.5 Hyperlipidemia, unspecified; Z85.038 Personal history of other malignant neoplasm of large intestine; K21.9 Gastro-esophageal reflux disease without esophagitis
CPT/HCPCS: 70450; 70486; 73030; 73060; 87426; 96372; 99283; 99284; A4565; C9803; J1885